=== PATIENT | male | born 1950 | race Two or more races ===

== ENCOUNTER 2024-03-14 08:19 | Outpatient (CLI) | payer OTHER | END 2024-03-14 08:22 | disposition home or self-care (01) | LOC: SONOGRAMA 08:19 | PROVIDERS: ATTEND Pathology Anatomic Pathology & Clinical Pathology | DX: D34 Benign neoplasm of thyroid gland (principal); E07.89 Other specified disorders of thyroid; E04.1 Nontoxic single thyroid nodule ==

== ENCOUNTER 2024-07-08 06:10 | Day surgery (SDC) | payer OTHER ==
[2024-07-08] MEDS ORDERED: DIPHENHYDRAMINE HCL 50 MG/ML VIAL 1ML IV ONE (08:45)
[2024-07-08] MEDS ORDERED: MIDAZOLAM HCL 2 MG/2 ML VIAL IV ONE (08:45)
[2024-07-08] MEDS ORDERED: fentaNYL CITRATE 50 MCG/ML AMPUL IV PUSH ONE (08:45)
== END 2024-07-08 10:25 | disposition home or self-care (01) ==
LOC: AMB-ENDOS 06:10
PROVIDERS: ATTEND Surgery
DX: D12.2 Benign neoplasm of ascending colon (principal)

== ENCOUNTER 2024-12-27 10:25 | Inpatient (IN) | payer OTHER ==
[~2024-12-27] VITALS: Ht 182.9 cm; Wt 77.1 kg
[2024-12-27] MEDS ORDERED: LEVO-T25 MCG PO (10:31)
[2024-12-27] MEDS ORDERED: ALTACE10 MG PO (10:31)
[2024-12-27] MEDS ORDERED: AMLODIPINE BESYL5 MG PO (10:31)
[2024-12-27] MEDS ORDERED: HORIZANT300 MG PO (10:32)
[2024-12-27] MEDS ORDERED: TAMS0.4C PO (10:32)
[2024-12-27] MEDS ORDERED: METFORMIN HCL850 M1 PO (10:32)
[2024-12-27] MEDS ORDERED: ALLOPURINOL300 MG PO (10:33)
[2024-12-27 11:48] LABS: RH POSITIVE
[2025-01-03] MEDS ORDERED: GABAPENTIN300 M2 (10:02)
[2025-01-03] MEDS ORDERED: HYDROCHLOROTHIA25 MG (10:02)
[2025-01-03] MEDS ORDERED: RAMIPRIL10 MG (10:02)
[2025-01-03] MEDS ORDERED: LEVOTHYROXINE25 MC1 (10:02)
[2025-01-03] MEDS ORDERED: TADALAFIL20 MG (10:03)
[2025-01-03] MEDS ORDERED: ATORVASTATIN CA20 MG (10:03)
[2025-01-03] MEDS ORDERED: LIDOCAINE HCL 1%/EPINEPHRINE 20ML VIAL IJ ONE (12:15)
[2025-01-03] MEDS ORDERED: METRONIDAZOLE/SODIUM CHLORIDE 500 MG/100 ML PIGGYBACK IV ONE (12:15)
[2025-01-03] MEDS ORDERED: CEFTRIAXONE SODIUM 2,000 MG VIAL IV ONE (12:15)
[2025-01-03] MEDS ORDERED: BUPIVACAINE HCL 30 ML VIAL IV ONE (12:15)
[2025-01-03] MEDS ORDERED: DEXTROSE 50 % IN WATER 0.5 G/ML VIAL IV PRN ×2 (12:45→13:45)
[2025-01-03] MEDS ORDERED: OxyCODONE HCL 5 MG TABLET (ROXICODONE) PO PRN (12:45)
[2025-01-03] MEDS ORDERED: MORPHINE SULFATE 4 MG/ML CARTRIDGE IV PRN (12:45)
[2025-01-03] MEDS ORDERED: RINGERS SOLUTION,LACTATED 1,000 ML IV SCH (12:45)
[2025-01-03] MEDS ORDERED: ONDANSETRON HCL 2 MG/ML VIAL IV PRN (12:45)
[2025-01-03] MEDS ORDERED: HYOSCYAMINE SULFATE 0.125 MG TAB.SUBL SL SCH (13:00)
[2025-01-03] MEDS ORDERED: ENALAPRILAT DIHYDRATE 1.25 MG/ML VIAL IV PRN ×2 (13:45→17:00)
[2025-01-03] MEDS ORDERED: INSULIN LISPRO 1,000 UNIT/10 ML UNITS SUBCUTANEO PRN (13:45)
[2025-01-03] MEDS ORDERED: ACETAMINOPHEN 500 MG GEL..CAP PO SCH (14:00)
[2025-01-03] MEDS ORDERED: MORPHINE SULFATE 4 MG/ML VIAL IV ONE ×2 (14:20→15:55)
[2025-01-03] MEDS ORDERED: ENALAPRILAT DIHYDRATE 1.25 MG/ML VIAL IV ONE ×2 (15:55→16:35)
[2025-01-03 16:21] LABS: BASO % 0.3 % (0.1-1.2); EOS # 0.01 (0.04-0.54); EOS % 0.1 % (0.7-7.0); LYMPH # 1.02 (1.18-3.74); LYMPH % 8.3 % (19.3-53.1); MEAN PLATELET VOLUME 10.00 fl (9.4-12.4); MONO # 0.73 (0.24-0.82); MONO % 5.9 % (4.7-12.5); NEUT # 10.54 (1.56-6.13); NEUT % 85.2 % (34.0-71.1); RED CELL DISTRIBUTION WIDTH 15.0 % (11.6-14.4)
[2025-01-03] MEDS ORDERED: LABETALOL HCL 100 MG/20 ML ML IV ONE (16:35)
[2025-01-03 16:58] LABS: BUN CREA RATIO 16.0 (7.0-25.0); CREATININE SERUM 1.5 mg/dL (0.70-1.30); GFR 45.62; GLUCOSE FASTING 197.0 mg/dL (65-100); OSMOLALITY SERUM 287.0 MOSM/KG (275-295)
[2025-01-03] MEDS ORDERED: POLYETHYLENE GLYCOL 3350 17 GM BLIST.PACK PO SCH (17:00)
[2025-01-03] MEDS ORDERED: GABAPENTIN 300 MG CAPSULE PO SCH (17:00)
[2025-01-03] MEDS ORDERED: LABETALOL HCL 20MG/4ML SYRINGE IV ONE (17:00)
[2025-01-03 17:16] VITALS: BP 109/50; O2SAT 98
[2025-01-03 19:50] VITALS: BP 161/80; O2SAT 96
[2025-01-03] MEDS ORDERED: RAMIPRIL 5 MG CAPSULE PO SCH (21:00)
[2025-01-03] MEDS ORDERED: TAMSULOSIN HCL 0.4 MG CAP PO SCH (21:00)
[2025-01-03] MEDS ORDERED: FAMOTIDINE/PF 20 MG/2 ML VIAL IV PUSH SCH (21:00)
[2025-01-04 00:30] VITALS: BP 144/75; O2SAT 100
[2025-01-04 05:29] LABS: BASO % 0.2 % (0.1-1.2); EOS # 0.01 (0.04-0.54); EOS % 0.1 % (0.7-7.0); LYMPH # 1.18 (1.18-3.74); LYMPH % 12.7 % (19.3-53.1); MEAN PLATELET VOLUME 11.10 fl (9.4-12.4); MONO # 0.96 (0.24-0.82); MONO % 10.3 % (4.7-12.5); NEUT # 7.09 (1.56-6.13); NEUT % 76.5 % (34.0-71.1); RED CELL DISTRIBUTION WIDTH 14.9 % (11.6-14.4)
[2025-01-04 05:51] LABS: BUN CREA RATIO 13.0 (7.0-25.0); CREATININE SERUM 1.31 mg/dL (0.70-1.30); GFR 53.34; GLUCOSE FASTING 179.0 mg/dL (65-100); OSMOLALITY SERUM 284.0 MOSM/KG (275-295)
[2025-01-04] MEDS ORDERED: LEVOTHYROXINE SODIUM 25 MCG TABLET PO SCH (06:00)
[2025-01-04] MEDS ORDERED: MAGNESIUM SULFATE IN WATER 50 ML IV ONE (07:00)
[2025-01-04] MEDS ORDERED: ALLOPURINOL 300 MG TABLET PO SCH (09:00)
[2025-01-04] MEDS ORDERED: AMLODIPINE BESYLATE 5 MG TABLET PO SCH (09:00)
[2025-01-04 09:32] VITALS: BP 149/68; O2SAT 96
[2025-01-04] MEDS ORDERED: MAGNESIUM SULFATE IN WATER 50 ML IV NR (13:00)
[2025-01-04 16:00] VITALS: BP 123/64; O2SAT 96
[2025-01-04] MEDS ORDERED: ENOXAPARIN SODIUM 40 MG/0.4 ML SYRINGE SUBCUTANEO SCH (17:00)
[2025-01-04] MEDS ORDERED: ATORVASTATIN CALCIUM 20 MG TABLET PO SCH (17:00)
[2025-01-05 00:32] VITALS: BP 164/75; O2SAT 95
[2025-01-05 06:53] LABS: BASO % 0.4 % (0.1-1.2); EOS # 0.07 (0.04-0.54); EOS % 0.7 % (0.7-7.0); LYMPH # 1.45 (1.18-3.74); LYMPH % 15.3 % (19.3-53.1); MEAN PLATELET VOLUME 10.90 fl (9.4-12.4); MONO # 0.91 (0.24-0.82); MONO % 9.6 % (4.7-12.5); NEUT # 6.99 (1.56-6.13); NEUT % 73.7 % (34.0-71.1); RED CELL DISTRIBUTION WIDTH 15.1 % (11.6-14.4)
[2025-01-05 07:43] LABS: BUN CREA RATIO 11.0 (7.0-25.0); CREATININE SERUM 1.15 mg/dL (0.70-1.30); GFR 61.99; GLUCOSE FASTING 122.0 mg/dL (65-100); OSMOLALITY SERUM 281.0 MOSM/KG (275-295)
[2025-01-05 08:52] VITALS: BP 118/69; O2SAT 96
[2025-01-05] MEDS ORDERED: ENOXAPARIN SODIUM 40 MG/0.4 ML SYRINGE SUBCUTANEO SCH (09:00)
[2025-01-05] MEDS ORDERED: POTASSIUM PHOS,M-BASIC-D-BASIC 3 MM/ML VIAL IV NR (10:15)
[2025-01-05] MEDS ORDERED: MAGNESIUM SULFATE IN WATER 50 ML IV NR (10:30)
[2025-01-05 16:11] VITALS: BP 139/72; O2SAT 98
[2025-01-06 01:27] VITALS: BP 205/100; O2SAT 96
[2025-01-06 01:52] VITALS: BP 150/90
[2025-01-06 17:17] VITALS: BP 148/83; O2SAT 95
[2025-01-07 01:04] VITALS: BP 151/82; O2SAT 98
[2025-01-07 08:40] VITALS: BP 147/74; O2SAT 98
[2025-01-07] MEDS ORDERED: HYOSCYAMINE0.125 M1 SL (14:21)
[2025-01-07] MEDS ORDERED: INTESTINEX680 M1 PO (14:22)
== END 2025-01-07 15:35 | disposition home or self-care (01) | DRG 330 ==
LOC: SURH 01-03 07:00 → O/R 01-03 09:59 → SURH 01-03 12:15
PROVIDERS: Internal Medicine Geriatric Medicine; ADMIT Surgery; ATTEND Surgery
PROC: 07BB4ZZ Excision of Mesenteric Lymphatic, Percutaneous Endoscopic Approach (ICD-10-PCS; 2025-01-03)
PROC: 0DBU4ZZ Excision of Omentum, Percutaneous Endoscopic Approach (ICD-10-PCS; 2025-01-03)
PROC: 0DTF4ZZ Resection of Right Large Intestine, Percutaneous Endoscopic Approach (ICD-10-PCS; principal; 2025-01-03 07:00)
DX: D12.2 Benign neoplasm of ascending colon (principal); K92.2 Gastrointestinal hemorrhage, unspecified; D37.4 Neoplasm of uncertain behavior of colon; R59.0 Localized enlarged lymph nodes